=== PATIENT | male | born 1950 | race Caucasian/White ===

== ENCOUNTER 2016-07-26 18:33 | Emergency (ER) ==
[2016-07-26 19:01] VITALS: BP 151/79
--- NOTE | 2016-07-26 19:50 | PROVIDER DOCUMENTATION ---
HPI-Respiratory General <Sammie Sebastian - Last Filed: 07/26/16 20:25> - General Source: patient <Laura Leong - Last Filed: 07/28/16 17:13> - General Chief Complaint: Cough Stated Complaint: COUGH Time Seen by Provider: 07/26/16 19:44 Allergies/Adverse Reactions: Patient Allergies Allergy/AdvReac Type Severity Reaction Status Date / Time Penicillins Allergy Intermediate RASH Verified 07/26/16 21:26 Iodinated Contrast Media - Allergy ANAPHYLAXIS Verified 07/26/16 21:26 Oral and [IV Dye] Home Medications: Home Medication List Medication Instructions Recorded Confirmed Last Taken Type No Home Medications 07/24/12 07/26/16 Unknown History - History of Present Illness-Resp Nature of Presenting Problem: 66 y/o WM c/o cough x 2 days. States that he had sternum fx in June, now states pain to bilat ribs and sternum, hurts more with cough, some pain at rest. Denies any radiation. Cough productive of green/yellow sputum. Denies any other sxs. (Laura Leong) Review of Systems - Adult - REVIEW OF SYSTEMS - ADULT Constitutional: reports: see HPI, chills. denies: fever Eyes: reports: no symptoms reported. denies: blurred vision, double vision Ears, Nose, Mouth & Throat: reports: no symptoms reported. denies: ear pain, nose pain Cardiovascular: reports: see HPI, chest pain. denies: palpitations Respiratory: reports: see HPI, cough. denies: shortness of breath Gastrointestinal: reports: no symptoms reported. denies: abdominal pain, nausea , vomiting Genitourinary: reports: no symptoms reported. denies: dysuria, frequency Musculoskeletal: reports: see HPI, joint pain. denies: back pain, neck pain Integumentary: reports: no symptoms reported. denies: nail changes, rash Neurological: reports: no symptoms reported. denies: numbness, paresthesia Psychiatric: reports: no symptoms reported Endocrine: reports: no symptoms reported. denies: cold intolerance, heat intolerance Hematologic/Lymphatic: reports: no symptoms reported. denies: easy bruising, prolonged bleeding Allergic/Immunologic: reports: no symptoms reported All Other Systems: Reviewed and Negative <Laura Leong - Last Filed: 07/28/16 17:13> Past History - Adult - PAST MEDICAL HISTORY-ADULT Review of Records: reports: Nursing Assessment Review, Medications Reviewed - SOCIAL HISTORY Smoking: denies Alcohol Use Frequency: never <Laura Leong. - Last Filed: 07/28/16 17:13> Physical Exam-General - PHYSICAL EXAM-ADULT Initial Vital Signs Reviewed: Yes - CONSTITUTIONAL General Appearance: alert, mild distress - EYES Eyes: pink conjunctivae - HEAD, EARS, NOSE, MOUTH & THROAT HENMT: moist mucous membranes - NEUROLOGIC Neurologic: negative: aphasia - PSYCHIATRIC Psych/Mental Status: normal mood/affect, normal thought content, normal thought process, oriented x 3 <Saida Leongine Torey. - Last Filed: 07/28/16 17:13> Progress - EKG 1 Time of EKG reading by physician:: 20:04 EKG Read and Signed by:: Percy Smith EKG Interpretation (*Must complete 3 of following elements*): Normal Rate: 99 Rhythm: NSR [place]: left Comments: Abnormal ECG <Sammie Sebastian - Last Filed: 07/26/16 20:25> <Laura Leong. - Last Filed: 07/28/16 17:13> - PLAN OF CARE/RESULTS Progress/Plan/Lab Results: Laboratory Tests 07/26/16 07/26/16 07/26/16 20:00 20:00 20:00 WBC 5.98 RBC 5.05 Hgb 15.3 Hct 45.6 MCV 90.3 MCH 30.3 MCHC 33.6 RDW Std Deviation 13.3 Plt Count 148 MPV 10.1 Immature Gran % (Auto) 0.0 Neut % (Auto) 63.1 Lymph % (Auto) 24.7 [place] % (Auto) 10.7 H Eos % (Auto) 1.2 Baso % (Auto) 0.3 Immature Gran # (Auto) 0.00 Neut # (Auto) 3.77 Lymph # (Auto) 1.48 [place] # (Auto) 0.64 H Eos # (Auto) 0.07 Baso # (Auto) 0.02 PT INR PTT (Actin FS) D-Dimer 1.82 H Sodium 135 L Potassium 3.9 Chloride 98 Carbon Dioxide 23 L Anion Gap 14 BUN 15 Creatinine 1.0 Estimated GFR/1.73 m2 > 60 BUN/Creatinine Ratio 15 Glucose 143 H Calculated Osmolality 273 Calcium 9.4 Magnesium 1.8 Total Bilirubin 0.48 AST 25 ALT 23 Alkaline Phosphatase 124 H Creatine Kinase 219 H Creatine Kinase Index 1.3 CK-MB (CK-2) 2.75 Troponin T Drv-I-Ohgexodscip Pept Total Protein 7.6 Albumin 4.0 Globulin 3.6 Albumin/Globulin Ratio 1.1 07/26/16 07/26/16 07/26/16 20:00 20:00 20:00 WBC RBC Hgb Hct MCV MCH MCHC RDW Std Deviation Plt Count MPV Immature Gran % (Auto) Neut % (Auto) Lymph % (Auto) [place] % (Auto) Eos % (Auto) Baso % (Auto) Immature Gran # (Auto) Neut # (Auto) Lymph # (Auto) [place] # (Auto) Eos # (Auto) Baso # (Auto) PT 11.2 INR 1.06 PTT (Actin FS) 29.7 D-Dimer Sodium Potassium Chloride Carbon Dioxide Anion Gap BUN Creatinine Estimated GFR/1.73 m2 BUN/Creatinine Ratio Glucose Calculated Osmolality Calcium Magnesium Total Bilirubin AST ALT Alkaline Phosphatase Creatine Kinase Creatine Kinase Index CK-MB (CK-2) Troponin T < 0.010 Sci-E-Gibguucjvyu Pept 18 Total Protein Albumin Globulin Albumin/Globulin Ratio Orders Category Date Time Status CHEST-2 VIEWS [RAD] Stat Exams 07/26/16 19:02 Completed CBC WITH ELECTRONIC DIFF [HEME] Stat Lab 07/26/16 20:00 Completed CK PROFILE [SP CHEM] Stat Lab 07/26/16 20:00 Completed COMPREHENSIVE METABOLIC PANEL [CHEM] Stat Lab 07/26/16 20:00 Completed D-DIMER [CHEM] Stat Lab 07/26/16 20:00 Completed MAGNESIUM [CHEM] Stat Lab 07/26/16 20:00 Completed PRO B-NATRIURETIC PEPTIDE Stat Lab 07/26/16 20:00 Completed PROTIME WITH INR [COAG] Stat Lab 07/26/16 20:00 Completed PTT [COAG] Stat Lab 07/26/16 20:00 Completed TROPONIN T Stat Lab 07/26/16 20:00 Completed EKG [EKG] Stat Ther 07/26/16 19:52 Draft Vital Signs Temp Pulse Resp BP Pulse Ox 07/26/16 18:59 98.8 F 105 H 20 151/79 95 Penicillins Allergy (Intermediate, Verified 07/26/16 21:26) RASH Iodinated Contrast Media - Oral and [IV Dye] Allergy (Verified 07/26/16 21:26) ANAPHYLAXIS No Home Medications 07/24/12 PAIN IN UNSPECIFIED JOINT (07/26/16) COUGH (07/26/16) PRECORDIAL PAIN (07/26/16) PLEURODYNIA (07/26/16) CHILLS (WITHOUT FEVER) (07/26/16) Laboratory 07/26/16 07/26/16 07/26/16 20:00 20:00 20:00 WBC RBC Hgb Hct MCV MCH MCHC RDW Std Deviation Plt Count MPV Immature Gran % (Auto) Neut % (Auto) Lymph % (Auto) [place] % (Auto) Eos % (Auto) Baso % (Auto) Immature Gran # (Auto) Neut # (Auto) Lymph # (Auto) [place] # (Auto) Eos # (Auto) Baso # (Auto) PT 11.2 INR 1.06 PTT (Actin FS) 29.7 D-Dimer Sodium Potassium Chloride Carbon Dioxide Anion Gap BUN Creatinine Estimated GFR/1.73 m2 BUN/Creatinine Ratio Glucose Calculated Osmolality Calcium Magnesium Total Bilirubin AST ALT Alkaline Phosphatase Creatine Kinase Creatine Kinase Index CK-MB (CK-2) Troponin T < 0.010 Ahr-M-Lcxjueobmke Pept 18 Total Protein Albumin Globulin Albumin/Globulin Ratio 07/26/16 07/26/16 07/26/16 20:00 20:00 20:00 WBC 5.98 RBC 5.05 Hgb 15.3 Hct 45.6 MCV 90.3 MCH 30.3 MCHC 33.6 RDW Std Deviation 13.3 Plt Count 148 MPV 10.1 Immature Gran % (Auto) 0.0 Neut % (Auto) 63.1 Lymph % (Auto) 24.7 [place] % (Auto) 10.7 H Eos % (Auto) 1.2 Baso % (Auto) 0.3 Immature Gran # (Auto) 0.00 Neut # (Auto) 3.77 Lymph # (Auto) 1.48 [place] # (Auto) 0.64 H Eos # (Auto) 0.07 Baso # (Auto) 0.02 PT INR PTT (Actin FS) D-Dimer 1.82 H Sodium 135 L Potassium 3.9 Chloride 98 Carbon Dioxide 23 L Anion Gap 14 BUN 15 Creatinine 1.0 Estimated GFR/1.73 m2 > 60 BUN/Creatinine Ratio 15 Glucose 143 H Calculated Osmolality 273 Calcium 9.4 Magnesium 1.8 Total Bilirubin 0.48 AST 25 ALT 23 Alkaline Phosphatase 124 H Creatine Kinase 219 H Creatine Kinase Index 1.3 CK-MB (CK-2) 2.75 Troponin T Ifq-A-Kxpnycpppae Pept Total Protein 7.6 Albumin 4.0 Globulin 3.6 Albumin/Globulin Ratio 1.1 (Laura Leong) Departure <Sammie Sebastian - Last Filed: 07/26/16 20:25> - Departure Time of Disposition Order: 21:50 Certified Medical Emergency: Emergent <Laura Leong - Last Filed: 07/28/16 17:13> - Departure DIAGNOSIS: Cough Disposition: ELOPEMENT 07 Condition: Fair Referrals: Teresa Reyes CRNP [Primary Care Provider] - Attestation - Physician/ LÁZARO Attestation Patient care was provided by Advanced Practice Provider:: Yes Advanced Practice Provider:: Laura Leong Advanced Practice Provider documentation review:: The Mid-level provider documentation, treatment plan and medical decision making was reviewed by the physician who agrees with all treatment and medical decision making by the MLP. <Laura Leong - Last Filed: 07/28/16 17:13> Physician Attestation
[2016-07-26 20:14] LABS: MANUAL DIFF NEEDED? NO
[2016-07-26 20:18] LABS: BASO% 0.3 % (0.0-0.8); EOS# 0.07 X1000 (0.0-0.7); EOS% 1.2 % (0.0-10.0); HEMATOCRIT 45.6 % (42.0-52.0); HEMOGLOBIN 15.3 g/dL (14.0-18.0); LYMPH# 1.48 X1000 (1.2-3.4); LYMPH% 24.7 % (20.5-51.1); MCH 30.3 PG (27-31); MCHC 33.6 g/dL (33-37); MCV 90.3 FL (81-99); MONO# 0.64 X1000 (0.11-0.59); MONO% 10.7 % (1.7-9.3); MPV 10.1 FL (7.4-10.4); NEUT% 63.1 % (42.2-75.2); PLT 148 X1000 (130-400); RBC 5.05 XMIL (4.7-6.1)
[2016-07-26 20:26] LABS: INR 1.06; PROTIME 11.2 Seconds (9.2-11.7); PTT 29.7 Seconds (22.0-36.0)
[2016-07-26 20:39] LABS: AGAP 14; ALKALINE PHOSPHATASE 124 U/L (32-122); BUN 15 mg/dL (8-22); CALCIUM 9.4 mg/dL (8.8-10.2); CHLORIDE 98 mmol/L (98-107); COSMO 273; GOT 25 U/L (10-34); GPT 23 U/L (10-44); MAGNESIUM 1.8 mg/dL (1.5-2.7); POTASSIUM 3.9 mmol/L (3.5-5.1); SODIUM 135 mmol/L (136-145); TCO2 23 mmol/L (25-35); TOTAL BILIRUBIN 0.48 mg/dL (0.20-1.00); TOTAL PROTEIN 7.6 g/dL (6.3-8.3)
[2016-07-26 20:40] LABS: CK PROFILE 219 U/L (24-204)
[2016-07-26 21:12] LABS: CK INDEX 1.3 (0.0-2.5); CK-MB 2.75 ng/mL (0.0-5.0)
--- NOTE | 2016-07-27 05:25 | EKG Report ---
Test Performed on : 07/26/2016 8:04:39 PM Test Reason : CP Blood Pressure : / mmHG Vent. Rate : 099 BPM Atrial Rate : 099 BPM P-R Int : 128 ms QRS Dur : 102 ms QT Int : 344 ms P-R-T Axes : 032 -32 039 degrees QTc Int : 441 ms Normal sinus rhythm. Left axis deviation Abnormal ECG No previous ECGs available Unconfirmed Result
--- NOTE | 2016-07-27 08:17 | Diag Imaging Result Document ---
PROCEDURE NAME: CHEST-2 VIEWS - 07/26/2016 FRONTAL AND LATERAL CHEST, TWO VIEWS: FINDINGS: The lungs are well expanded. The heart is not enlarged. The vessels are not distended. There are no infiltrates. No pleural effusions. IMPRESSION: No pneumonia.
== END 2016-07-26 21:52 | disposition left against medical advice (07) ==
LOC: ED 18:33
DX: R05 Cough (principal); R68.83 Chills (without fever); M25.50 Pain in unspecified joint; R07.81 Pleurodynia; R07.2 Precordial pain
CPT/HCPCS: 36415; 71020; 80053; 82550; 82553; 83735; 83880; 84484; 85025; 85379; 85610; 85730; 93005; 99283